=== PATIENT | female | born 1950 | race Caucasian/White ===

== ENCOUNTER 2023-07-17 08:24 | Emergency (ER) | payer MEDICARE, OTHER ==
[2023-07-17 09:14] LABS: BASOPHILS PERCENT AUTO 0.3 % (0.0-1.0); EOSINOPHILS PERCENT AUTO 0.7 % (1.0-3.0); HEMATOCRIT 42.9 % (37.0-47.0); HEMOGLOBIN 14.2 g/dL (12.0-16.0); LYMPHOCYTES PERCENT AUTO 10.6 % (20.5-50.1); MEAN CORPUSCULAR HEMOGLOBIN 29.7 pg (27.0-34.0); MEAN CORPUSCULAR HGB CONC 33.1 g/dL (33.0-35.0); MEAN CORPUSCULAR VOLUME 89.7 fL (80-100); MONOCYTES PERCENT AUTO 9.9 % (2-8); NEUTROPHILS PERCENT AUTO 78.5 % (42.2-75.2); PLATELET COUNT,PLT 252 10^3/uL (150-450); RED BLOOD CELL COUNT 4.78 10^6/uL (4.2-5.4); WHITE BLOOD CELL COUNT,WBC 10.2 10^3/uL (5.0-10.0)
[2023-07-17] MEDS: Sodium Chloride 0.9% 1,000 ML IV ONE (09:20)
[2023-07-17] MEDS: Ondansetron 4 MG/2 ML SDV IV ONE ×2 (09:20→10:36)
[2023-07-17] MEDS: HYDROmorphone 0.5 MG/0.5 ML Syringe IVPUSH ONE (09:20)
[2023-07-17 09:25] LABS: LACTIC ACID 0.7 mmol/L (0.4-2.0)
[2023-07-17 09:32] LABS: ALBUMIN 3.9 g/dL (3.4-5.0); ANION GAP 14.8 mEq/L (7-13); BILIRUBIN TOTAL 0.7 mg/dL (0.2-1.0); BUN/CREATININE RATIO 15.1 (No establ ref range); C-REACTIVE PROTEIN 7.27 ng/dL (<=0.50); CALCIUM 9.1 mg/dL (8.5-10.1); CREATININE 0.93 mg/dL (0.55-1.02); EST CRCL DRUG DOSING (CG) 49.93 mL/min; POTASSIUM,K 3.8 mmol/L (3.5-5.1); PROTEIN TOTAL,TP 7.8 g/dL (6.4-8.2)
[2023-07-17] MEDS: Sodium Chloride 0.9% 10 ML Syringe FLUSH PRN (09:56)
[2023-07-17] MEDS ORDERED: HYDROmorphone 0.5 MG/0.5 ML Syringe IVPUSH ONE (10:01)
[2023-07-17] MEDS: Iopamidol 612 MG/ML 100 ML Bottle IVPUSH ONE (10:24)
[2023-07-17] MEDS ORDERED: Ondansetron 4 MG/2 ML SDV ONE (10:34)
[2023-07-17] MEDS: Piperacillin/Tazobactam 4.5 GM in Sodium Chloride 0.9% 100 ML IV ONE (10:51)
[2023-07-17 11:04] LABS: APPEARANCE,URINE CLEAR (CLEAR); BILIRUBIN,URINE NEGATIVE (NEGATIVE); COLOR,URINE YELLOW (YELLOW); GLUCOSE,URINE NEGATIVE (NEGATIVE); KETONES,URINE 40 (NEGATIVE); LEUKOCYTE ESTERASE,URINE NEGATIVE (NEGATIVE); NITRITE,URINE NEGATIVE (NEGATIVE); OCCULT BLOOD,URINE NEGATIVE (NEGATIVE); PROTEIN,URINE NEGATIVE (NEGATIVE); UROBILINOGEN,URINE 0.2 mg/dL (0.2-1.0)
== END 2023-07-17 13:17 ==
LOC: DL.ED 08:24
DX: K80.00 Calculus of gallbladder with acute cholecystitis without obstruction (principal); Z90.710 Acquired absence of both cervix and uterus; Z88.5 Allergy status to narcotic agent
CPT/HCPCS: 36415; 74177; 80053; 81003; 82150; 83605; 83690; 85025; 86140; 93010; 96361; 96365; 96366; 96375; 96376; 99284; 99285-25; J1170; J2405; J2543; J3490; J7030; Q9967